=== PATIENT | female | born 1940 | race Caucasian/White ===

== ENCOUNTER → 2016-07-21 | Outpatient (CLI) | payer OTHER | LOC: BMCIMAGING 13:10 | DX: Z12.31 Encounter for screening mammogram for malignant neoplasm of breast (principal) | CPT/HCPCS: G0202 ==

== ENCOUNTER 2017-07-31 12:26 | Day surgery (SDC) | payer OTHER ==
[2017-07-31] MEDS ORDERED: LR 1,000 ML IV ONE (13:02)
[2017-07-31] MEDS ORDERED: ceFAZolin 2 GM/SWFI 2 GM/20 ML SYR IVP ONE (13:02)
[2017-07-31] MEDS ORDERED: LIDOCAINE 1% 2 ML INJ ID PRN (13:02)
--- NOTE | 2017-07-31 13:57 | PDHPUP ---
History & Physical Update H&P update statement: This history and physical update is based on an assessment of the patient which was completed after admission or registration (within 24 hours), but prior to the surgery/procedure. H&P update: H&P reviewed & patient examined
[2017-07-31] MEDS ORDERED: BUPIVACAINE 0.5% 30 ML SDV ONE (13:59)
--- NOTE | 2017-07-31 13:59 | PDANEPAE ---
ANE History of Present Illness r heel bone spur ANE Past Medical History - Cardiovascular History Hx Hypertension: No Hx Arrhythmias: No Hx Chest Pain: No Hx Coronary Artery / Peripheral Vascular Disease: No Hx CHF / Valvular Disease: No Hx Palpitations: No - Pulmonary History Hx COPD: No Hx Asthma/Reactive Airway Disease: No Hx Recent Upper Respiratory Infection: No Hx Oxygen in Use at Home: No Hx Sleep Apnea: No Sleep Apnea Screening Result - Last Documented: Negative - Neurologic History Hx Cerebrovascular Accident: No Hx Seizures: No Hx Dementia: No - Endocrine History Hx Diabetes: No - Renal History Hx Renal Disorders: No - Liver History Hx Hepatic Disorders: No - Neurological & Psychiatric Hx Hx Neurological and Psychiatric Disorders: No - Cancer History Hx Cancer: No - Congenital Disorder History Hx Congenital Disorders: No - GI History Hx Gastrointestinal Disorders: No - Other Health History Other Health History: wears glasses. arthritis - Chronic Pain History Chronic Pain: No - Surgical History Prior Surgeries: appy as child. tonsillectomy as child ANE Review of Systems Review of Systems: - Exercise capacity METS (RN): 4 METS ANE Patient History - Allergies Allergies/Adverse Reactions: No Known Allergies Allergy (Verified 07/24/17 11:20) - Home Medications Home Medications: Aspirin 81mg (*) 07/24/17 [Last Taken 07/24/17] Herbals/Supplements -Info Only 07/24/17 [Last Taken 07/24/17] Metamucil 07/24/17 [Last Taken Unknown] Prolia 07/24/17 [Last Taken Unknown] traZODone HS 07/24/17 [Last Taken Unknown] - NPO status NPO Since - Liquids (Date): 07/31/17 NPO Since - Liquids (Time): 00:00 NPO Since - Solids (Date): 07/30/17 NPO Since - Solids (Time): 20:00 - Smoking Hx Smoking Status: Former smoker - Family Anes Hx Family Hx Anesthesia Complications: none ANE Labs/Vital Signs - Vital Signs Blood Pressure: 109/67 Heart Rate: 75 Respiratory Rate: 18 O2 Sat (%): 91 Height: 167.64 cm Weight: 53.524 kg ANE Physical Exam - Airway Neck exam: FROM Mallampati Score: Class 1 Mouth exam: normal dental/mouth exam - Pulmonary Pulmonary: no respiratory distress - Cardiovascular Cardiovascular: regular rate and rhythym - ASA Status ASA Status: I ANE Anesthesia Plan Anesthesia Plan: MAC
[2017-07-31] MEDS ORDERED: fentaNYL 100 MCG/2 ML INJ ONE (14:01)
[2017-07-31] MEDS ORDERED: PROPOFOL/EMULSION 500 MG/50 ML BOTTLE IV ONE (14:01)
[2017-07-31] MEDS ORDERED: NALOXONE HCL 0.4 MG/ML INJ IVP PRN (14:36)
[2017-07-31] MEDS ORDERED: HYDROCODONE/APAP 5/325 TAB PO PRN (14:36)
[2017-07-31] MEDS ORDERED: ONDANSETRON 4 MG/2 ML VIAL IVP PRN ×2 (14:36→15:41)
[2017-07-31] MEDS ORDERED: fentaNYL 100 MCG/2 ML INJ IVP PRN (14:36)
[2017-07-31] MEDS ORDERED: PROMETHAZINE HCL 25 MG/ML INJ IVP PRN (14:36)
[2017-07-31] MEDS ORDERED: HYDROmorphONE/DILAUDID 2 MG/ML INJ IVP PRN (14:36)
--- NOTE | 2017-07-31 15:40 | POSTANESTH ---
Post Anesthetic Evaluation Cardiovascular Status: Normal, Stable Respiratory Status: Normal, Stable Level of Consciousness/Mental Status: Can Participate in Eval Pain Control: Adequate, Prn Tx Ordered Nausea/Vomiting Control: Adequate, Prn Tx Ordered Complications Possibly Related to Anesthesia: None Noted
[2017-07-31 17:40] VITALS: BP 137/65
--- NOTE | 2017-08-01 13:49 | GOP ---
[f rep st] GENERAL OPERATIVE NOTE DATE OF ADMISSION: 07/31/2017 [employer] OPERATOR: None. PREOPERATIVE DIAGNOSES: 1. Calcaneal spur (Antione's deformity), right leg. 2. Achilles tenosynovitis, right leg. POSTOPERATIVE DIAGNOSES: 1. Calcaneal spur (Antione's deformity), right leg. 2. Achilles tenosynovitis, right leg. PROCEDURE: 1. Partial resection of calcaneous, right foot. 2. Excision of lesion tendon sheath or capsule, right Achilles. ANESTHESIA: MAC with local 30 mL 0.5% Marcaine plain. ESTIMATED BLOOD LOSS: Zero. HEMOSTASIS: Right pneumatic ankle tourniquet inflated to 250 mmHg for 40 minutes. MATERIALS: [employer] SpeedBridge x1, 0 and 3-0 Vicryl, 4-0 nylon. INJECTABLES: None. CONDITION: Stable. GROSS FINDINGS: Consistent with diagnosis. PROCEDURE IN DETAIL: After identification, the patient was in the operating room and placed on the operating table in the prone position. Following IV sedation, local anesthesia was obtained around the patient's right lower extremity, utilizing a total of 30 mL 0.5% Marcaine plain. The foot was then scrubbed, prepped and draped in the usual aseptic manner. Pneumatic ankle tourniquet was placed around the patient's right calf with ample padding. An Esmarch bandage was utilized to exsanguinate the patient's right lower extremity. The pneumatic ankle tourniquet was then inflated. Attention was first directed to the posterior aspect of the patient's right lower extremity, where a 5 cm curvilinear incision was made over the distal course and insertion of the Achilles tendon. This incision was deepened through the subcutaneous tissue, with care being taken to identify and retract all vital neural and vascular structures. The peritenon was linearly incised and reflected medially and laterally, thus exposing the Achilles tendon at the operative site. A linear incision was made at the central aspect from the Achilles tendon from distal to proximal. The Achilles tendon was reflected medially and laterally, thus exposing the large calcaneal spur at the operative site. It was noted that approximately 60% of the tendon attachment was preserved. Using a sagittal saw, all bone spurs were removed and a portion of the calcaneous at the distal dorsal aspect was also removed and passed from the operative field. The calcaneal bone was then smoothed with a bone rasp to ensure there were no remaining prominent edges. Attention was then directed to the Achilles tendon, where significant tendinopathy is present. The diseased portions of the tendons were excised and passed from the operative field. There was a moderate amount of bone within the substance of the Achilles tendon , which was excised and passed from the operative field. At this time, all remaining Achilles tendon is healthy, viable, and normal in appearance. The incision site was then flushed with normal sterile saline solution. The Achilles tendon was then anchored using standard technique with 4 anchors and the [employer] SpeedBridge system. This knotless anchor system was applied in standard technique and fixation was noted to be extremely stable at the conclusion. The tendon was reattached to the calcaneous under physiologic tension. The mid substance of the Achilles tendon was then directly repaired with 0 Vicryl. The peritenon was then repaired using 3-0 Vicryl, subcutaneous tissue repaired using 3-0 Vicryl, and skin reapproximated utilizing 4-0 nylon in a horizontal mattress suture technique. The patient's right lower extremity was then dressed with Moe silk, 4x4 gauze, Webril, and Karime. A posterior splint was then applied in standard fashion over the postoperative bandage. The patient was then transferred to the postoperative recovery area with vital signs stable and vascular status intact to the right lower extremity. The patient tolerated the procedure and anesthesia well. /[id number]/MODL MTDD
== END 2017-07-31 17:18 | disposition home or self-care (01) ==
LOC: FSGY 12:26
PROVIDERS: ATTEND Podiatrist
PROC: 0QBL0ZZ Excision of Right Tarsal, Open Approach (ICD-10-PCS; principal; 2017-07-31 13:45)
PROC: 0LBV0ZZ Excision of Right Foot Tendon, Open Approach (ICD-10-PCS; principal; 2017-07-31 13:45)
DX: M77.31 Calcaneal spur, right foot (principal); M76.61 Achilles tendinitis, right leg
CPT/HCPCS: C1713; J0690; J2704; J3010